=== PATIENT | female | born 1995 | race Caucasian/White ===

== ENCOUNTER 2018-03-26 12:10 | Observation (INO) | payer MEDICAID ==
[~2018-03-26] VITALS: Ht 170.2 cm; Wt 65.8 kg
[2018-03-26] MEDS ORDERED: PREN-153 OR (12:30)
[2018-03-26] MEDS ORDERED: LACTATED RINGER'S 1,000 ML IV ONE (12:54)
[2018-03-26] MEDS ORDERED: TERBUTALINE SULFATE 1 MG/ML 1ML VIAL SC ONE (13:13)
[2018-03-27] MEDS ORDERED: TERBUTALINE SULFATE 1 MG/ML 1ML VIAL SC ONE (10:00)
== END 2018-03-26 14:17 | disposition home or self-care (01) | DRG 566 ==
LOC: LDRP 12:10
PROVIDERS: ADMIT Specialist; ATTEND Specialist
DX: O62.9 Abnormality of forces of labor, unspecified (principal); Z3A.35 35 weeks gestation of pregnancy
CPT/HCPCS: 59025; 81002; 96360; 96372; G0378; J3105; 96365

== ENCOUNTER 2018-04-23 20:14 | Inpatient (IN) | payer MEDICAID ==
[~2018-04-23] VITALS: Ht 170.2 cm; Wt 78.9 kg
[~2018-04-23 20:14] MED LIST: PREN-153 OR
[2018-04-23] MEDS ORDERED: LACT. RINGERS/OXYTOCIN 20UNITS 1,000 ML IV SCH (20:22)
[2018-04-23] MEDS ORDERED: PHISODERM TOP SOLN 240ML BTL TOP PRN (20:30)
[2018-04-23] MEDS ORDERED: LIDOCAINE 2% (LOCAL ANESTH.) PF 5ml SDV ID ONE (20:30)
[2018-04-23] MEDS ORDERED: METHYLERGONOVINE MALEATE 0.2 MG/ML AMP IM PRN (20:30)
[2018-04-23] MEDS ORDERED: WITCH HAZEL-GLYCERIN PAD TOP PRN (20:30)
[2018-04-23] MEDS ORDERED: DERMOPLAST 60ML BOTTLE TOP PRN (20:30)
[2018-04-23] MEDS ORDERED: NALBUPHINE HCL 10 MG/1ml INJECTION IV PRN (20:30)
[2018-04-23 21:29] LABS: Basophils # (auto) 0 uL; Basophils % (auto) 0.1 % (0.0-2.0); Eosinophils # (auto) 0 uL; Eosinophils % (auto) 0.3 % (0.0-7.0); Hematocrit 30.2 % (36.0-46.0); Hemoglobin 10.1 g/dL (12.2-16.2); Lymphocytes # (auto) 2.3 uL; Lymphocytes % (auto) 18.4 % (10.0-50.0); Mean Corpuscular Hemoglobin 27.3 pg (28.0-32.0); Mean Corpuscular Hgb Conc. 33.4 g/dL (32.0-36.0); Mean Corpuscular Volume 81.7 fL (80.0-100.0); Monocytes # (auto) 1.1 uL; Monocytes % (auto) 8.8 % (0.0-12.0); Neutrophils % (auto) 72.4 % (37.0-80.0); Platelet Count (auto) 297 10^3/uL (140-450); White Blood Cell 12.4 10^3/uL (4.4-10.8)
[2018-04-23 21:43] LABS: INR 0.87 (0.9-1.15); Partial Thromboplastin Time 25.7 sec (23.78-33.04); Prothrombin Time 9.4 sec (9.27-12.13)
[2018-04-23 21:46] LABS: Alcohol, Urine < 3.0 mg/dL (0-5); Amphetamine Screen, Urine NEGATIVE (NEGATIVE); Barbiturate Scree,Urine NEGATIVE (NEGATIVE); Benzodiazephine Screen, Urine NEGATIVE (NEGATIVE); Cannabinoid Screen, Urine NEGATIVE (NEGATIVE); Cocaine Screen, Urine NEGATIVE (NEGATIVE); Opiate Scree,Urine NEGATIVE (NEGATIVE); Phencyclidine Screen, Urine NEGATIVE (NEGATIVE)
[2018-04-23 21:48] LABS: Albumin 2.8 g/dL (3.4-5.0); BUN/Creatinine Ratio 16.9; Bilirubin, Total 0.3 mg/dL (0.2-1.0); Potassium 3.7 mmol/L (3.5-5.1); Total Protein 6.6 g/dL (6.4-8.2)
[2018-04-23 22:27] LABS: Urine Bacteria NONE SEEN /hpf (None Seen); Urine Blood Negative /uL (Negative); Urine Mucus FEW (None Seen); Urine Specific Gravity 1.025 (1.001-1.035); Urine WBC 1 /hpf (0 - 5)
[2018-04-24] MEDS ORDERED: FERR-20 PO (00:57)
[2018-04-24] MEDS: LACTATED RINGER'S 1,000 ML IV SCH ×2 (01:30→09:31)
[2018-04-24] MEDS ORDERED: TERBUTALINE SULFATE 1 MG/ML 1ML VIAL SC ONE (03:45)
[2018-04-24] MEDS ORDERED: PROMETHAZINE HCL 25 MG/ML 1ML ONE (05:53)
[2018-04-24] MEDS ORDERED: PROMETHAZINE HCL 25 MG/ML 1ML IV PRN (06:00)
[2018-04-24] MEDS ORDERED: ACETAMINOPHEN 325 MG TAB PO PRN (08:15)
[2018-04-24 10:56] VITALS: BP 104/69
[2018-04-24] MEDS: IBUPROFEN 600 MG TAB PO PRN ×3 (13:01→23:02)
[2018-04-24 15:10] VITALS: BP 111/61
[2018-04-24 19:01] VITALS: BP 119/57
[2018-04-24 23:00] VITALS: BP 119/66
[2018-04-25 03:10] VITALS: BP 109/57
[2018-04-25 05:10] LABS: RPR Non Reactive (Non Reactive)
[2018-04-25] MEDS: IBUPROFEN 600 MG TAB PO PRN (06:44)
[2018-04-25 07:18] VITALS: BP 105/61
[2018-04-25 11:00] VITALS: BP 120/74
== END 2018-04-25 11:10 | disposition home or self-care (01) | DRG 560 ==
LOC: LDRP 20:14
PROVIDERS: ADMIT Specialist; ATTEND Specialist
PROC: 10E0XZZ Delivery of Products of Conception, External Approach (ICD-10-PCS; principal; 2018-04-24)
PROC: 0KQM0ZZ Repair Perineum Muscle, Open Approach (ICD-10-PCS; 2018-04-24)
DX: O69.81X0 Labor and delivery complicated by cord around neck, without compression, not applicable or unspecified (principal); O70.1 Second degree perineal laceration during delivery; O76 Abnormality in fetal heart rate and rhythm complicating labor and delivery; Z37.0 Single live birth; Z3A.39 39 weeks gestation of pregnancy
CPT/HCPCS: 36415; 59025; 59409; 76818; 80053; 80307; 81001; 85025; 85610; 85730; 86592; 86850; 86900; 86901; 96361; 96365; 96366; 96374; 96375; J2001; J2590